=== PATIENT | female | born 1965 | race Caucasian/White ===

== ENCOUNTER 2023-10-22 17:11 | Emergency (ER) | payer BC, OTHER ==
[2023-10-22] MEDS ORDERED: Ibuprofen 200 MG TAB ONE (19:48)
== END 2023-10-22 20:55 | disposition home or self-care (01) ==
LOC: CSHERS 17:11
DX: S82.002A Unspecified fracture of left patella, initial encounter for closed fracture (principal); S93.401A Sprain of unspecified ligament of right ankle, initial encounter; F17.210 Nicotine dependence, cigarettes, uncomplicated; X50.1XXA Overexertion from prolonged static or awkward postures, initial encounter; Y99.0 Civilian activity done for income or pay

== ENCOUNTER 2024-06-14 10:16 | Outpatient (CLI) | payer BC | END 2024-06-14 10:17 | disposition home or self-care (01) | LOC: CSHMAMMO 10:16 | PROVIDERS: ATTEND Family Medicine | DX: Z78.0 Asymptomatic menopausal state (principal); M81.0 Age-related osteoporosis without current pathological fracture | CPT/HCPCS: 77080 ==

== ENCOUNTER 2024-08-01 13:18 | Outpatient (CLI) | payer BC | END 2024-08-01 13:19 | disposition home or self-care (01) | LOC: CSHMAMMO 13:18 | PROVIDERS: ATTEND Family Medicine | DX: Z12.31 Encounter for screening mammogram for malignant neoplasm of breast (principal); Z91.89 Other specified personal risk factors, not elsewhere classified | CPT/HCPCS: 77063; 77067 ==

== ENCOUNTER 2025-06-12 17:21 | Outpatient (CLI) | payer BC | END 2025-06-12 17:22 | disposition home or self-care (01) | LOC: CSHRAD 17:21 | PROVIDERS: ATTEND Family Medicine | DX: M79.671 Pain in right foot (principal) ==